=== PATIENT | male | born 1990 | race Caucasian/White ===

== ENCOUNTER 2017-09-09 08:53 | Inpatient (IN) | payer OTHER ==
[2017-09-09 09:33] LABS: Basophils % (A) 0 %; CHCM 34.2; Eosinophils # (A) 0.2 k/uL (0-0.7); Eosinophils % (A) 2 %; HCT 42.2 % (39.0-53.0); HDW 2.21; Luc # (Auto) 0.17; Luc % (Auto) 2; Lymphocytes # (A) 2.6 k/uL (1.0-4.8); Lymphocytes % (A) 24 %; MCH 31.2 pg (25.0-35.0); MCHC 33.1 g/dL (31.0-37.0); MCV 94.1 fL (80.0-100.0); Mean Platelet Volume 8.1; Monocytes # (A) 0.5 k/uL (0-1.0); Monocytes % (A) 5 %; Neutrophils # (A) 7.1 k/uL (1.3-7.7); Neutrophils % (A) 67 %; RBC 4.48 m/uL (4.30-5.90); RDW 12.5 % (11.5-15.5); WBC 10.6 k/uL (3.8-10.6); WBC (Perox) 10.36
[2017-09-09] MEDS ORDERED: HEPARIN SODIUM,PORCINE/D5W PMX 25,000 UNIT in DEXTROSE/WATER 1 500ML.BAG IV ONE (09:35)
[2017-09-09] MEDS ORDERED: HEPARIN SODIUM,PORCINE 5,000 UNIT/ML 1 ML VIAL IV STA (09:38)
[2017-09-09 09:41] LABS: INR 1.3 (<1.2); Prothrombin Time 12.4 sec (9.0-12.0)
[2017-09-09 09:58] LABS: Alcohol <10 mg/dL; Creatine Kinase 166 U/L (55-170)
[2017-09-09 10:07] LABS: Partial Thromboplastin Time 161.6 sec (22.0-30.0)
[2017-09-09 10:10] LABS: Creatine Kinase MB 1.3 ng/mL (0.0-2.4); Troponin I <0.012 ng/mL (0.000-0.034)
--- NOTE | 2017-09-09 10:27 | ED ---
Chest Pain HPI - General Chief Complaint: Chest Pain Stated Complaint: Chest Pain Time Seen by Provider: 09/09/17 08:53 Source: patient Mode of arrival: ambulatory Limitations: no limitations - History of Present Illness Initial Comments: This is a 27-year-old male who was brought in by EMS from [facility] complains of chest pain and reported atrial fibrillation. This barely started sometime this morning. Apparently this all started again early this morning he presented to [facility] EKG was done and it is reported that the patient atrial fibrillation. His response rate was apparently within normal limits below 100. He had no other symptoms or signs. MD Complaint: chest pain, other - Related Data Home Medications Medication Instructions Recorded Confirmed Ibuprofen [Motrin] 400 mg PO Q6HR PRN 09/09/17 09/09/17 Allergies Allergy/AdvReac Type Severity Reaction Status Date / Time latex Allergy Rash/Hives Verified 09/09/17 09:08 Review of Systems ROS Statement: Those systems with pertinent positive or pertinent negative responses have been documented in the HPI. ROS Other: All systems not noted in ROS Statement are negative. EKG Findings - EKG Results: EKG: interpreted by STEVEN, sinus rhythm (Says bradycardia rate of 47 a MN interval 92 QRS 96 QT since QTC of 422/373. A short MN interval but does appear to be a sinus rhythm.) Past Medical History Additional Past Medical History / Comment(s): heroin abuse, pt states hes been clean since 05/14/15 History of Any Multi-Drug Resistant Organisms: None Reported Additional Past Surgical History / Comment(s): lower back Past Psychological History: Depression Smoking Status: Current every day smoker Past Alcohol Use History: Occasional Past Drug Use History: None Reported General Exam - General Exam Comments Initial Comments: This is a well-developed well-nourished awake alert oriented 3 male Limitations: no limitations General appearance: alert, in no apparent distress Head exam: Present: atraumatic, normocephalic, normal inspection Eye exam: Present: normal appearance, PERRL, EOMI. Absent: scleral icterus, conjunctival injection, periorbital swelling ENT exam: Present: normal exam, mucous membranes moist Neck exam: Present: normal inspection. Absent: tenderness, meningismus, lymphadenopathy Respiratory exam: Present: normal lung sounds bilaterally. Absent: respiratory distress, wheezes, rales, rhonchi, stridor Cardiovascular Exam: Present: normal rhythm, bradycardia, normal heart sounds. Absent: systolic murmur, diastolic murmur, rubs, gallop, clicks GI/Abdominal exam: Present: soft, normal bowel sounds. Absent: distended, tenderness, guarding, rebound, rigid Extremities exam: Present: normal inspection, full ROM, normal capillary refill. Absent: tenderness, pedal edema, joint swelling, calf tenderness Back exam: Present: normal inspection Neurological exam: Present: alert, oriented X3, CN II-XII intact Psychiatric exam: Present: normal affect, normal mood Skin exam: Present: warm, dry, intact, normal color. Absent: rash Course Vital Signs 09/09/17 09/09/17 09/09/17 08:59 09:06 10:04 Temperature 97.6 F Pulse Rate 47 L 47 L 54 L Pulse Rate [ 46 L [employer] ] Respiratory 18 16 18 Rate Blood Pressure 131/75 127/64 O2 Sat by Pulse 98 99 97 Oximetry 09/09/17 09/09/17 11:15 12:00 Temperature 97.8 F Pulse Rate 40 L 52 L Pulse Rate [ [place] [employer] ] Respiratory 16 18 Rate Blood Pressure 130/87 126/62 O2 Sat by Pulse 100 Oximetry Chest Pain MDM - MDM The patient will be admitted for evaluation by cardiology. Disposition Clinical Impression: Paroxysmal atrial fibrillation, Bradycardia, Atypical chest pain Disposition: ADMITTED IP TO THIS HOSP Condition: Stable Referrals: None,Stated [Primary Care Provider] - 1-2 days
[2017-09-09] MEDS ORDERED: ACETAMINOPHEN IV (For NPO) 1,000 MG in SALINE 1 100ML.BAG IVPB STA (11:22)
[2017-09-09 11:30] LABS: ALT 36 U/L (21-72); AST 21 U/L (17-59); Alkaline Phosphatase 70 U/L (38-126); Anion Gap 10 mmol/L; Blood Urea Nitrogen 10 mg/dL (9-20); Calcium 9.6 mg/dL (8.4-10.2); Carbon Dioxide 24 mmol/L (22-30); Chloride 109 mmol/L (98-107); Glucose 100 mg/dL (74-99); Non-African American GFR(MDRD) >60 (>60 ml/min/1.73 sqM); Potassium 3.8 mmol/L (3.5-5.1); Sodium 143 mmol/L (137-145); Total Bilirubin 0.6 mg/dL (0.2-1.3)
[2017-09-09] MEDS ORDERED: NITROGLYCERIN SL TABS 0.4 MG TAB SUBLINGUAL PRN (13:17)
[2017-09-09] MEDS ORDERED: SODIUM CHLORIDE 0.9% 1,000 ML IV SCH (13:30)
--- NOTE | 2017-09-09 14:50 | P.CRDCN ---
History of Present Illness Consult date: 09/09/17 Requesting physician: Candi Ambrocio Consult reason: chest pain Chief complaint: Chest pain History of present illness: This is a pleasant 27-year-old gentleman with history of nicotine dependence, who was transferred here from [facility]. He does state that a few weeks ago he had an upper respiratory infection or cold-like symptoms. He presented to [facility] with symptoms of sudden onset of sharp pain in the center to the left side of his chest. Patient states that the pain is significantly worse when he takes a deep breath or when he moves from side to side. He states that he was sitting on the couch when the symptoms started, he had just let up a cigarette and was visiting with his girlfriend. Patient also states intermittently that he feels a flip-flopping in his chest and feels like his heart is racing fast. According to the patient , he also has history of chronic diarrhea for which she takes Imodium on a daily basis. Patient was transferred here because of an EKG that read atrial fibrillation. EKG performed at [facility] shows a normal sinus rhythm with occasional PACs, short OK interval. Heart rate in the 40s to 50s. ETA of the chest was performed at [facility] which did not reveal any evidence of a pulmonary embolism and otherwise normal findings. Troponin negative d-dimer negative sed rate 1 TSH 2.5 WBC 9.2 platelets 232 glucose 86 BUN 10 creatinine 0.8 sodium 137 potassium 3.3, CO2 normal at 27. LFTs and total bilirubin not elevated, EtOH negative patient was initiated on IV heparin at [facility] which has since been discontinued. Patient does not drink energy drinks he rarely drinks alcohol, he does state that he drinks a lot of pop each day. Cardiology consultation was requested for the chest pain along with the suspicion of atrial fibrillation. Past Medical History Additional Past Medical History / Comment(s): Past irregular fast heart rate, chronic low back pain. History of Any Multi-Drug Resistant Organisms: None Reported Additional Past Surgical History / Comment(s): lower back surgery Past Anesthesia/Blood Transfusion Reactions: No Reported Reaction Smoking Status: Current every day smoker - Past Family History Father Family Medical History: Cancer Additional Family Medical History / Comment(s): Colon cancer Mother Family Medical History: Asthma Additional Family Medical History / Comment(s): Chronic asthma. Medications and Allergies Home Medications Medication Instructions Recorded Confirmed Type Ibuprofen [Motrin] 400 mg PO Q6HR PRN 09/09/17 09/09/17 History Allergies Allergy/AdvReac Type Severity Reaction Status Date / Time latex Allergy Rash/Hives Verified 09/09/17 09:08 Physical Exam Vitals: Vital Signs Temp Pulse Pulse Resp BP Pulse Ox 09/09/17 13:29 97.8 F 49 L 16 136/58 98 09/09/17 12:00 52 L 18 126/62 09/09/17 11:15 97.8 F 40 L 16 130/87 100 09/09/17 10:04 54 L 18 127/64 97 09/09/17 09:06 47 L 46 L 16 99 09/09/17 08:59 97.6 F 47 L 18 131/75 98 Intake and Output 09/08/17 09/09/17 09/09/17 22:59 06:59 14:59 Other: Weight 58.967 kg Patient Weight 09/10/17 06:59 Weight 58.967 kg PHYSICAL EXAMINATION: HEENT: [Head is atraumatic, normocephalic. Pupils equal, round. Neck is supple. There is no elevated jugular venous pressure.] HEART EXAMINATION: [Heart S1, S2 normal. No murmur or gallop heard.] CHEST EXAMINATION:[ Lungs are clear to auscultation and precussion. Positive sharp chest pain with deep breathing and movement of the chest wall. ABDOMEN: [ Soft, nontender. Bowel sounds are heard. No organomegaly noted]. EXTREMITIES:[ 2+ peripheral pulses with no evidence of peripheral edema and no calf tenderness noted]. NEUROLOGIC [patient is awake, alert and oriented -3.] . Results 09/10/17 05:48 09/10/17 05:48 Cardiac Enzymes 09/09/17 09/09/17 Range/Units 09:02 09:02 AST 21 (17-59) U/L CK-MB (CK-2) 1.3 (0.0-2.4) ng/mL Troponin I <0.012 (0.000-0.034) ng/mL Coagulation 09/09/17 Range/Units 09:02 PT 12.4 H (9.0-12.0) sec APTT 161.6 H* (22.0-30.0) sec CBC 09/09/17 Range/Units 09:02 WBC 10.6 (3.8-10.6) k/uL RBC 4.48 (4.30-5.90) m/uL Hgb 14.0 (13.0-17.5) gm/dL Hct 42.2 (39.0-53.0) % Plt Count 233 (150-450) k/uL Comprehensive Metabolic Panel 09/09/17 Range/Units 09:02 Sodium 143 (137-145) mmol/L Potassium 3.8 (3.5-5.1) mmol/L Chloride 109 H (98-107) mmol/L Carbon Dioxide 24 (22-30) mmol/L BUN 10 (9-20) mg/dL Creatinine 0.77 (0.66-1.25) mg/dL Glucose 100 H (74-99) mg/dL Calcium 9.6 (8.4-10.2) mg/dL AST 21 (17-59) U/L ALT 36 (21-72) U/L Alkaline Phosphatase 70 (38-126) U/L Total Protein 7.0 (6.3-8.2) g/dL Albumin 4.2 (3.5-5.0) g/dL Current Medications Generic Name Dose Route Start Last Admin Trade Name Freq PRN Reason Stop Dose Admin Aspirin 325 mg 09/10/17 09:00 Aspirin PO DAILY KELIN Nitroglycerin 0.4 mg 09/09/17 13:17 Nitrostat SUBLINGUAL Q5M PRN Chest Pain Sodium Chloride 10 ml 09/09/17 21:00 Saline Flush IV Q12HR KELIN Intake and Output 09/08/17 09/09/17 09/09/17 22:59 06:59 14:59 Other: Weight 58.967 kg Patient Weight 09/10/17 06:59 Weight 58.967 kg 09/09/17 09:02 09/09/17 09:02 EKG Interpretations (text) EKG shows a sinus bradycardia with short OK interval and occasional PAC Assessment and Plan Plan: Assessment and plan #1 atypical chest pain, pleuritic in nature. Troponin at heart of each negative. Troponin on arrival here negative. CT of the chest negative for pulmonary embolism. #2 nicotine dependence #3 recent upper respiratory infection approximately one week ago. Plan The patient's pain is very atypical in nature, extremely worse with deep breathing or on movement of the chest wall. We will repeat a third troponin value. Obtain echocardiogram with Doppler study. We will discontinue the aspirin and heparin. We will start the patient on some nonsteroidal anti- inflammatories. Further recommendations to follow. DNP note has been reviewed, I agree with a documented findings and plan of care. Patient was seen and examined.
[2017-09-09 15:06] LABS: Creatine Kinase 154 U/L (55-170)
[2017-09-09 15:19] LABS: Creatine Kinase MB 1.2 ng/mL (0.0-2.4); Troponin I <0.012 ng/mL (0.000-0.034)
[2017-09-09] MEDS ORDERED: ALPRAZolam 0.25 MG TAB PO PRN (15:58)
[2017-09-09] MEDS: IBUPROFEN 400 MG TAB PO SCH ×2 (15:58→20:49)
[2017-09-09] MEDS ORDERED: TEMAZEPAM 15 MG CAP PO PRN (15:58)
[2017-09-09] MEDS: NICOTINE 14MG/24HR PATCH TRANSDERM SCH (17:33)
--- NOTE | 2017-09-09 18:57 | HP ---
HISTORY AND PHYSICAL DATE OF SERVICE: 09/09/2007. CHIEF COMPLAINTS: Chest pain and bradycardia. HISTORY OF PRESENT ILLNESS: This 27-year-old gentleman with a past medical history of irregular heartbeat previously, atrial fibrillation, depression being followed by primary physician in the [place] area presented to [facility] with complaints of chest pain which is felt on the left side of the chest. Atrial fibrillation suspected and the patient was subsequently referred to [facility] Emergency Room for evaluation. The patient admitted for further evaluation and treatment. The patient was found to have bradycardia. Otherwise there is no history of any fever, rigors. No history of headache, loss of consciousness. The patient also had a previous history of substance abuse. Also, the patient smokes about 1/2 pack of cigarettes per day. The patient is followed by in the outpatient setting. There is no history of fever, rigors chills PAST MEDICAL HISTORY: History of atrial fibrillation, history of depression, history of occasional alcohol intake. HOME MEDICATIONS: Motrin 400 mg every 6 hours p.r.n. ALLERGIES: LATEX. FAMILY HISTORY: History of colon cancer in the family. SOCIAL HISTORY: History of smoking, no alcohol. REVIEW OF SYSTEMS: ENT: No diminished vision, diminished hearing. CARDIOVASCULAR: As mentioned earlier. RESPIRATORY: No cough or hemoptysis. GI: No nausea, vomiting. : No dysuria. NERVOUS: No numbness or weakness. ALLERGY: No asthma or hay fever. MUSCULOSKELETAL: As mentioned earlier. HEMATOLOGY/ONCOLOGY: No history of anemia. ENDOCRINE: No history of diabetes, hypothyroidism. CONSTITUTIONAL: As mentioned earlier. DERMATOLOGY: Negative. RHEUMATOLOGY: Negative. PSYCHIATRY: As mentioned earlier. PHYSICAL EXAMINATION: Alert and oriented x3. Pulse 140, blood pressure 130/80, respirations 16, temperature 97.8, pulse ox 100% on 2L. HEENT: Conjunctivae normal. NECK: No JVD. CARDIOVASCULAR: S1, S2 muffled. RESPIRATORY: Breath sounds diminished in the bases. A few scattered rhonchi. ABDOMEN: Soft, nontender. No mass palpable. LEGS: No edema. No swelling. NERVOUS SYSTEM: Higher functions as mentioned earlier. Moves all 4 limbs. No focal motor or sensory deficits. LYMPHATICS: No lymph nodes in the neck or axillae. SKIN: No ulcer, rash or bleeding. LABS: CBC within normal limits. INR is 1.3. PTT is 161.6. Sodium 143, potassium 3.8, glucose 100. Alcohol less than 10. ASSESSMENT: 1. Chest pain, left-sided for evaluation. Rule out unstable angina, possibly musculoskeletal pain. 2. Atrial fibrillation. 3. Sinus bradycardia. 4. History of depression. 5. History of nicotine dependence. RECOMMENDATION AND DISCUSSION: In this 27-year-old gentleman who presented with multiple complex medical issues , will monitor the patient closely. Continue the current medical and symptomatic management. Cardiology evaluation, aspirin, increase ambulation. Two-D echo with Doppler. Otherwise, I would recommend basic labs. See orders for further details. Paulnie Faye, also. Smoking cessation has been advised. Guarded prognosis because of multiple complex medical issues. Further recommendations to follow. MMODL / IJN: [id number] / MTDD
[2017-09-09 21:11] LABS: Creatine Kinase 137 U/L (55-170)
[2017-09-09 21:23] LABS: Creatine Kinase MB 0.9 ng/mL (0.0-2.4); Troponin I <0.012 ng/mL (0.000-0.034)
[2017-09-10 05:07] VITALS: RESP 18
[2017-09-10 06:19] LABS: Basophils % (A) 1 %; CH 31.5; CHCM 32.7; Eosinophils # (A) 0.1 k/uL (0-0.7); Eosinophils % (A) 2 %; HCT 40.9 % (39.0-53.0); HDW 2.05; HGB 13.3 gm/dL (13.0-17.5); Luc # (Auto) 0.26; Luc % (Auto) 3; Lymphocytes # (A) 2.4 k/uL (1.0-4.8); Lymphocytes % (A) 30 %; MCH 31.5 pg (25.0-35.0); MCHC 32.5 g/dL (31.0-37.0); MCV 96.8 fL (80.0-100.0); Mean Platelet Volume 8.5; Monocytes # (A) 0.6 k/uL (0-1.0); Monocytes % (A) 7 %; Neutrophils # (A) 4.6 k/uL (1.3-7.7); Neutrophils % (A) 57 %; RBC 4.22 m/uL (4.30-5.90); RDW 13.9 % (11.5-15.5); WBC (Perox) 7.87
[2017-09-10 06:28] LABS: Anion Gap 6 mmol/L; Blood Urea Nitrogen 10 mg/dL (9-20); Calcium 9.8 mg/dL (8.4-10.2); Carbon Dioxide 29 mmol/L (22-30); Chloride 108 mmol/L (98-107); Cholesterol 155 mg/dL (<200); Glucose 91 mg/dL (74-99); HDL Cholesterol 48 mg/dL (40-60); Non-African American GFR(MDRD) >60 (>60 ml/min/1.73 sqM); Sodium 143 mmol/L (137-145)
[2017-09-10 06:31] LABS: Potassium 3.9 mmol/L (3.5-5.1)
[2017-09-10] MEDS ORDERED: PANTOPRAZOLE 40 MG TABLET PO SCH (07:30)
--- NOTE | 2017-09-10 08:01 | ECHOF ---
Referral Reason:assess lvf MEASUREMENTS -------- HEIGHT: 167.6 cm WEIGHT: 59.0 kg BP: 136/58 RVIDd: 2.6 cm (< 3.3) IVSd: 1.0 cm (0.6 - 1.1) LVIDd: 4.1 cm (3.9 - 5.3) LVPWd: 1.0 cm (0.6 - 1.1) IVSs: 1.2 cm LVIDs: 2.9 cm LVPWs: 1.3 cm LA Diam: 2.9 cm (2.7 - 3.8) Ao Diam: 2.7 cm (2.0 - 3.7) AV Cusp: 2.5 cm (1.5 - 2.6) MV EXCURSION: 20.043 mm (> 18.000) MV EF SLOPE: 169 mm/s (70 - 150) EPSS: 0.2 cm MV E Luis: 1.34 m/s MV DecT: 136 ms MV A Luis: 0.35 m/s MV E/A Ratio: 3.82 RAP: 5.00 mmHg RVSP: 27.65 mmHg FINDINGS -------- Resting bradycardia (HR<60bpm). This was a technically excellent study. The left ventricular size is normal. Left ventricular wall thickness is normal. Overall left vent ricular systolic function is normal with, an EF between 55 - 60 %. The right ventricle is normal in size and function. Normal LA size by volume 22+/-6 ml/m2. The right atrium is normal in size. The aortic valve is trileaflet and appears structurally normal. The mitral valve is normal. Mild tricuspid regurgitation present. Right ventricular systolic pressure is normal at < 35 mmHg. Trace/mild (physiologic) pulmonic regurgitation. The aortic root size is normal. The inferior vena cava is mildly dilated. There is no pericardial effusion. CONCLUSIONS -------- 1. Resting bradycardia (HR<60bpm). 2. This was a technically excellent study. 3. The left ventricular size is normal. 4. Left ventricular wall thickness is normal. 5. Overall left ventricular systolic function is normal with, an EF between 55 - 60 %. 6. The right ventricle is normal in size and function. 7. Normal LA size by volume 22+/-6 ml/m2. 8. The right atrium is normal in size. 9. The aortic valve is trileaflet and appears structurally normal. 10. The mitral valve is normal. 11. Mild tricuspid regurgitation present. 12. Right ventricular systolic pressure is normal at < 35 mmHg. 13. Trace/mild (physiologic) pulmonic regurgitation. 14. The aortic root size is normal. 15. The inferior vena cava is mildly dilated. 16. There is no pericardial effusion. COWLMAN: Zeenat Causey RDCS
[2017-09-10] MEDS ORDERED: ASPIRIN 325 MG TAB PO SCH (09:00)
[2017-09-10] MEDS: IBUPROFEN 400 MG TAB PO SCH (09:09)
[2017-09-10] MEDS: NICOTINE 14MG/24HR PATCH TRANSDERM SCH (09:10)
[2017-09-10 14:26] VITALS: BP 129/54; PULSE 53; TEMP 97.5
--- NOTE | 2017-09-10 17:29 | P.DS ---
Providers Date of admission: 09/09/17 13:17 Attending physician: Candi Ambrocio Consults: 09/09/17 13:17 Consult Physician Urgent Consulting Provider: Sara Trujillo Consult Reason/Comments: Atypical chest pain, paroxysmal atrial fibrillation Do you want consulting provider notified?: Yes Primary care physician: Stated None Hospital Course: This 27-year-old gentleman was admitted referred from [facility]. Complains of chest pain. Cardiology saw the patient. Myocardial infarction ruled out. Patient improved significantly. Patient be discharged in a stable condition with guarded prognosis. On exam vitals stable. Cardio S1 and S2 normal. Respirator system clear to auscultation. Abdomen soft nontender. Nervous system no focal deficit. Final diagnosis 1. Chest pain and left-sided possibly muscle skeletal. 2. History to fibrillation. 3. Sinus bradycardia. 4. History of depression. 5. History nicotine dependence. Patient Condition at Discharge: Stable Plan - Discharge Summary Discharge Rx Participant: No New Discharge Prescriptions: New Nicotine 14Mg/24Hr Patch [Habitrol] 1 patch TRANSDERM DAILY #30 patch Continue Ibuprofen [Motrin] 400 mg PO Q6HR PRN PRN Reason: Pain Discharge Medication List Ibuprofen [Motrin] 400 mg PO Q6HR PRN 09/09/17 [History] Nicotine 14Mg/24Hr Patch [Habitrol] 1 patch TRANSDERM DAILY #30 patch 09/10/17 [ Rx] Follow up Appointment(s)/Referral(s): None,Stated [Primary Care Provider] - 1-2 days Patient Instructions/Handouts: Heart Healthy Diet (DC), Heart Healthy Diet (GEN ) Activity/Diet/Wound Care/Special Instructions: diet cardiac act limited till f/u Discharge Disposition: HOME SELF-CARE
== END 2017-09-10 17:24 | disposition home or self-care (01) | DRG 203 ==
LOC: EC 08:53 → 6SEL 13:17
PROVIDERS: ADMIT Internal Medicine; ATTEND Internal Medicine
DX: R07.89 Other chest pain (principal); R00.1 Bradycardia, unspecified; I48.0 Paroxysmal atrial fibrillation; F17.210 Nicotine dependence, cigarettes, uncomplicated; Z82.5 Family history of asthma and other chronic lower respiratory diseases; G89.29 Other chronic pain; M54.5 Low back pain; K52.9 Noninfective gastroenteritis and colitis, unspecified; Z91.040 Latex allergy status; F32.9 Major depressive disorder, single episode, unspecified
CPT/HCPCS: 36415; 80048; 80053; 80061; 80320; 82550; 82553; 83735; 84443; 84484; 85025; 85610; 85730; 93005; 93306; 96365; 96366; 96368; 99285